=== PATIENT | female | born 1990 | race Two or more races ===

== ENCOUNTER 2020-02-29 20:57 | Emergency (ER) | payer MEDICAID ==
[~2020-02-29] VITALS: Ht 167.6 cm; Wt 68.0 kg
[~2020-02-29 20:57] MED LIST: IBUP-2029
[2020-02-29 21:00] VITALS: BP 109/62
== END 2020-02-29 23:00 | disposition left against medical advice (07) ==
LOC: ER 20:57
DX: I49.9 Cardiac arrhythmia, unspecified (principal); Z53.21 Procedure and treatment not carried out due to patient leaving prior to being seen by health care provider
CPT/HCPCS: 93005

== ENCOUNTER 2020-03-24 14:26 | Emergency (ER) | payer MEDICAID ==
[~2020-03-24] VITALS: Ht 167.6 cm; Wt 59.0 kg
[2020-03-24 14:48] VITALS: BP 122/83
[2020-03-24 16:42] LABS: CLARITY URINE CLEAR (CLEAR); COLOR URINE YELLOW (YELLOW); KETONES URINE NEGATIVE (NEGATIVE); LEUKOCYTE ESTERASE URINE TRACE (NEGATIVE); NITRITE URINE NEGATIVE (NEGATIVE); OCCULT BLOOD URINE NEGATIVE (NEGATIVE); PH URINE 6.5 (4.5-8.0); PROTEIN URINE NEGATIVE (NEGATIVE); SPECIFIC GRAVITY URINE 1.026 (1.005-1.030)
[2020-03-24] MEDS ORDERED: AZITHROMYCIN 500 MG TABLET PO ONE (18:15)
[2020-03-24] MEDS ORDERED: LIDOCAINE HCL 1% 20ML VIAL (Pyxis) INJ INFIL ONE (18:15)
[2020-03-24] MEDS ORDERED: CEFTRIAXONE SODIUM 250 MG/VIAL IM ONE (18:15)
== END 2020-03-24 19:33 | disposition home or self-care (01) ==
LOC: ER 14:36
DX: N89.8 Other specified noninflammatory disorders of vagina (principal)
CPT/HCPCS: 81003; 87210; 87491; 87591; 96372; 99283; J0696; J3490